=== PATIENT | male | born 1950 | race Caucasian/White ===

== ENCOUNTER → 2023-02-15 07:31 | Outpatient (CLI) | payer MEDICARE, OTHER, SELFPAY ==
--- NOTE | ~2023-02-15 | US_ITS ---
EXAMINATION: US aorta [facility] DATE: 02/15/2023 08:31 CDT INDICATION: History of smoking. Diabetes. Obesity. High cholesterol. TECHNIQUE: Grayscale, color Doppler, and pulsed Doppler images of the aorta and common iliac arteries were obtained. COMPARISON: None. FINDINGS: The proximal aorta measures 2.5 cm greatest sagittal dimension. The mid aorta measures 1.9 cm greates t sagittal dimension. The distal aorta measures 1.7 cm greatest sagittal dimension. The right common internal iliac artery measures 1 cm. The left common iliac artery measures 1 cm. IMPRESSION: 1. Normal caliber aorta without aneurysm. Reviewed, dictated and finalized at location L.
== END ==
PROVIDERS: PCP Emergency Medicine; Visit Provider Emergency Medicine
DX: Z13.6 Encounter for screening for cardiovascular disorders (principal); Z87.891 Personal history of nicotine dependence
CPT/HCPCS: 76706

== ENCOUNTER 2023-03-15 01:15 | Day surgery (SDC) | payer MEDICARE, OTHER, SELFPAY ==
[2023-03-10 10:09] VITALS: BMI 32.9
--- NOTE | 2023-03-15 08:33 | P.PNAN_ITS ---
Anes - Initial Pre Proc Eval Procedure: Operation Date: 03/15/23 11:30 Proposed Procedures p Esophagogastroduodenoscopy & Colonoscopy - Jah Carrillo MD Date/Time: 03/15/23 08:33 Surgeon: Jah Carrillo MD Pre Op Diagnosis: BEATRICE Patient Data Age: 72 Gender: M Height: 1.68 m Weight: 92.5 kg Allergies Allergy/AdvReac Type Severity Reaction Status Date / Time No Known Allergies Allergy Verified 03/15/23 10:08 Home Medications Medication Instructions Recorded Confirmed Type ferrous sulfate 325 mg (65 mg 325 mg PO DAILY 02/15/23 03/15/23 History iron) tablet metformin 500 mg tablet 500 mg PO BID 02/15/23 03/15/23 History simvastatin 20 mg tablet 20 mg PO DAILY 02/15/23 03/15/23 History Patient hx anesthesia problems: none Family hx anesthesia problems: none Results Review: All pre-operative results and documents have been reviewed as part of the pre- operative evaluation. PMF Past Medical History Medical History (Updated 03/15/23 @ 08:34 by Candido Paul MD) Anemia Anxiety Diabetes Hyperlipidemia Iron (Fe) deficiency anemia Obesity Surgical History Surgical History (Updated 02/15/23 @ 08:50 by Regina Calderon CMA) History of tonsillectomy Social History Social History (Updated 02/15/23 @ 10:16 by Regina Calderon CMA) Smoking packs per day: 1 Smoking cigarettes per day: 20.0 Years smoked: 10 Smoking pack-years: 10.00 Smoking status: Former smoker Alcohol intake: never Substance use: never Living arrangements: with family Spiritual care concerns: No Anes - Eval Final PreProcedure Day of Procedure 03/15/23 08:33 Patient weight: obese Heart: regular rate and rhythm Lungs: clear to auscultation and normal air movement Airway: Mallampati scale class II Neurological: alert and oriented Last oral intake: >/= 8 hours ASA classification: III Emergent: no Anesthetic plan: proceed Anesthesia type and monitoring: general GIVS Results Review: All pre-operative results and documents have been reviewed as part of the pre- operative evaluation. Informed Consent: The patient's anesthetic plan and its attendant risks and benefits were discussed with the patient/family/POA. Questions were solicited and answers provided to the satisfaction of the patient/family/POA.
[2023-03-15 10:15] VITALS: BP 132/83; PULSE 87; RESP 18; TEMP 36.6; O2SAT 100; BMI 32.3
[2023-03-15] MEDS: LACTATED RINGERS 1,000 ML 150 ML IV CONT (10:28)
[2023-03-15 10:29] LABS: Glucose Point of Care 144 mg/dl (65-105)
--- NOTE | 2023-03-15 10:41 | WPDHPUPDATE1 ---
History and Physical Update Update Date/Time: 03/15/23 10:41 History and Physical has been reviewed, including an updated exam of the patient. There are NO changes in the patient's condition. Risks, benefits, and alternatives have been discussed and questions answered. Patient agrees to proceed with procedure.
--- NOTE | 2023-03-15 11:15 | SUR.OPER ---
EGD: [id number] COLON: [id number]
[2023-03-15 11:36] VITALS: BP 139/83; PULSE 73; RESP 24; O2SAT 98
[2023-03-15 11:46] VITALS: BP 127/81; PULSE 71; RESP 20; O2SAT 99
[2023-03-15 11:56] VITALS: BP 119/71; PULSE 66; RESP 17; O2SAT 98
== END 2023-03-15 12:08 | disposition home or self-care (01) ==
PROVIDERS: PCP Emergency Medicine; Visit Provider Internal Medicine Gastroenterology
PROC: 0DJ08ZZ Inspection of Upper Intestinal Tract, Via Natural or Artificial Opening Endoscopic (ICD-10-PCS; CPT 43235; principal; 2023-03-15 11:30)
DX: D50.9 Iron deficiency anemia, unspecified (principal); D12.5 Benign neoplasm of sigmoid colon; K64.8 Other hemorrhoids; K64.4 Residual hemorrhoidal skin tags; E11.9 Type 2 diabetes mellitus without complications; E78.5 Hyperlipidemia, unspecified; Z87.891 Personal history of nicotine dependence; E66.9 Obesity, unspecified; Z68.32 Body mass index [BMI] 32.0-32.9, adult
CPT/HCPCS: 45385; 43239; 82948; 87081; 88305; J2704; J7120

== ENCOUNTER 2023-03-25 09:54 | Outpatient (CLI) | payer MEDICARE, OTHER, SELFPAY ==
[2023-03-25 10:11] LABS: Basophils Absolute Auto 0.1 K/mm3 (0.0-0.1); Basophils Percent Auto 0.8 % (0.2-1.2); Eosinophils Absolute Auto 0.3 K/mm3 (0-0.3); Eosinophils Percent Auto 3.4 % (0-4.4); Hematocrit 37.8 % (42.0-52.0); Hemoglobin 11.7 g/dL (14.0-18.0); Immature Granulocyte Absolute 0.06 K/mm3 (0.00-0.031); Immature Granulocyte Percent A 0.7 % (0-0.5); Lymphocytes Percent Auto 17.1 % (18.3-44.2); Mean Corpuscular Hemoglobin 26.4 pg (26-34); Mean Corpuscular Volume 85.3 fl (80-100); Monocytes Absolute Auto 0.8 K/mm3 (0.1-0.6); Monocytes Percent Auto 8.9 % (2.6-8.5); Neutrophils Percent Auto 69.1 % (45.5-73.1); Platelet Count Result 421 k/mm3 (150-375); Red Blood Count 4.43 M/mm3 (4.6-6.20); Red Cell Distribution Width 17.2 % (11.5-14.5); White Blood Count 8.8 K/mm3 (4.5-10.0)
[2023-03-25 12:19] LABS: Alanine Aminotransferase 22 U/L (6-50); Albumin Level 4.6 g/dL (3.5-5.1); Alkaline Phosphatase 89 U/L (38-126); Anion Gap 8 mmol/L (8-16); Aspartate Amino Transferase 28 U/L (17-59); Bilirubin,Total 0.5 mg/dL (0.2-1.3); Blood Urea Nitrogen 16 mg/dL (9-20); Calcium 8.9 mg/dL (8.4-10.2); Carbon Dioxide 25 mmol/L (22-30); Chloride 104 mmol/L (98-107); Estimated Glomerular Filt Rate > 60; Glucose 135 mg/dL (65-110); Iron 181 ug/dL (49-181); Potassium 4.4 mmol/L (3.4-5.0); Sodium 137 mmol/L (137-145)
[2023-03-25 12:30] LABS: Percent Iron Saturation 40 % (20-50)
[2023-03-25 13:28] LABS: Folic Acid > 20.0 ng/mL (2.76->20)
[2023-03-30 08:49] LABS: Methylmalonic Acid 121 nmol/L (87-318)
== END 2023-03-25 09:55 | disposition home or self-care (01) ==
LOC: ANHLAB 09:58
PROVIDERS: PCP Emergency Medicine; Visit Provider Internal Medicine Hematology & Oncology
DX: D64.9 Anemia, unspecified (principal)
CPT/HCPCS: 36415; 80053; 82607; 82728; 82746; 83540; 83550; 83921; 85025

== ENCOUNTER 2023-04-26 09:52 | Outpatient (CLI) | payer MEDICARE, OTHER, SELFPAY ==
--- NOTE | 2023-04-26 10:03 | ECG_ITS ---
Measurements Intervals [place] Rate: 71 P: 64 GA: 156 QRS: -27 QRSD: 93 T: -4 QT: 368 QTc: 402 Interpretive Statements SINUS RHYTHM POOR R WAVE PROGRESSION, ANTERIOR LEADS BORDERLINE T WAVE ABNORMALITY- INFERIOR LEADS BORDERLINE ECG NO PREVIOUS ECG AVAILABLE FOR COMPARISON Electronically Signed On 04-26-2023 10:29:14 CDT by Francisco J Grace D.O.
== END 2023-04-26 09:53 | disposition home or self-care (01) ==
PROVIDERS: PCP Emergency Medicine; Visit Provider Surgery
DX: E78.5 Hyperlipidemia, unspecified (principal)
CPT/HCPCS: 93005

== ENCOUNTER 2023-04-29 00:26 | Day surgery (SDC) | payer MEDICARE, OTHER, SELFPAY ==
[2023-04-25 15:19] VITALS: BMI 31.1
--- NOTE | 2023-04-25 15:24 | PC.NURSE ---
Report to the Outpatient Waiting Room, entrance under the green pavilion located off [facility], at time on date . Planned Procedure Time: . Time changes happen often and if your time is changed the preop area will call you the afternoon before. - You and your visitor will be asked to self-screen and do not enter if you have any COVID symptoms. - A mask is optional within the hospital at this time. Patients may have clear liquids (water, carbonated beverages, clear teas, apple juice) until 3 hours prior to surgery with a maximum of 20 ounces. - No food from midnight until time of surgery - Infants may have breast milk until 4 hours before surgery, infant formula 6 hours prior to surgery. - Children will be allowed to drink immediately following surgery. If applicable, please bring a bottle or sippy cup to assist with drinking. Juice, water, soda, and popsicles are readily available. For infants on formula, please bring formula the day of surgery. Pacifiers are allowed. Take the following medications with a SIP of water the morning of surgery: DO NOT STOP ANY OF YOUR OTHER PRESCRIPTION MEDICATIONS PRIOR TO SURGERY ?EXCEPT THE FOLLOWING Medications to discontinue per physician Date to take last dose Please no make-up, nail icelandic, hairspray, perfume, deodorant, or body powder the day of surgery. No jewelry (including any body piercings) or valuables the day of surgery, leave them at home. Please take a shower or bath the night before, or the morning of, surgery with an antibacterial soap. Wear comfortable, loose fitting clothing. Children are encouraged to wear pajamas. - Jewelry must be removed prior to entering the operating room. Rings and piercings that are not removed may be cut off. - The hospital will not accept responsibility for valuables. - Please leave all valuables, including medications, at home the day of surgery. If you are going home after surgery, a licensed industrial truck driver must drive you home. - NO public transportation without another adult if you receive anesthesia. - We recommend that an adult stay with you for 24 hours following discharge. - We also recommend that you do not drive, make important decision, drink alcoholic beverages, or take any drugs that were not prescribed by your health care provider for at least 24 hours after your discharge time. For Pediatric surgeries, we recommend two adults accompany the child home. Follow any additional instructions given to you from your surgeon. If you or anyone in your household have experienced Covid symptoms in the past week, please notify your surgeon or the nurse liaison at the phone number below for possible testing. Telephone instructions given to and asked if any additional questions and then verbalized understanding. Patient advised to call surgeon office or pre surgery nurse liaison [phone] if any additional questions.
--- NOTE | 2023-04-25 15:25 | PC.NURSE ---
Report to the Outpatient Waiting Room, entrance under the green pavilion located off [facility], at time 0700_ on date _04/29/23_. Planned Procedure Time: _0900__. Time changes happen often and if your time is changed the preop area will call you the afternoon before. - You and your visitor will be asked to self-screen and do not enter if you have any COVID symptoms. - A mask is optional within the hospital at this time. Patients may have clear liquids (water, carbonated beverages, clear teas, apple juice) until 3 hours prior to surgery with a maximum of 20 ounces. - No food from midnight until time of surgery - Infants may have breast milk until 4 hours before surgery, infant formula 6 hours prior to surgery. - Children will be allowed to drink immediately following surgery. If applicable, please bring a bottle or sippy cup to assist with drinking. Juice, water, soda, and popsicles are readily available. For infants on formula, please bring formula the day of surgery. Pacifiers are allowed. Take the following medications with a SIP of water the morning of surgery: NONE DO NOT STOP ANY OF YOUR OTHER PRESCRIPTION MEDICATIONS PRIOR TO SURGERY ?EXCEPT THE FOLLOWING Medications to discontinue per physician SUPPLIMENT Date to take last dose 04/26/23 Please no make-up, nail irish, hairspray, perfume, deodorant, or body powder the day of surgery. No jewelry (including any body piercings) or valuables the day of surgery, leave them at home. Please take a shower or bath the night before, or the morning of, surgery with HIBICLENS antibacterial soap. Wear comfortable, loose fitting clothing. Children are encouraged to wear pajamas. - Jewelry must be removed prior to entering the operating room. Rings and piercings that are not removed may be cut off. - The hospital will not accept responsibility for valuables. - Please leave all valuables, including medications, at home the day of surgery. If you are going home after surgery, a licensed bulk tank driver must drive you home. - NO public transportation without another adult if you receive anesthesia. - We recommend that an adult stay with you for 24 hours following discharge. - We also recommend that you do not drive, make important decision, drink alcoholic beverages, or take any drugs that were not prescribed by your health care provider for at least 24 hours after your discharge time. For Pediatric surgeries, we recommend two adults accompany the child home. Follow any additional instructions given to you from your surgeon. If you or anyone in your household have experienced Covid symptoms in the past week, please notify your surgeon or the nurse liaison at the phone number below for possible testing. Telephone instructions given to PATIENT__and asked if any additional questions and then verbalized understanding. Patient advised to call surgeon office or pre surgery nurse liaison [phone] if any additional questions.
[2023-04-29] VITALS (10 sets, daily range): BP systolic 106–153; BP diastolic 57–82; PULSE 58–64; RESP 13–14; TEMP 36.3–36.4; O2SAT 96–100
[2023-04-29 06:54] LABS: Glucose Point of Care 126 mg/dl (65-105)
--- NOTE | 2023-04-29 07:19 | WPDHPUPDATE1 ---
History and Physical Update Update Date/Time: 04/29/23 07:19 History and Physical has been reviewed, including an updated exam of the patient. There are NO changes in the patient's condition. Risks, benefits, and alternatives have been discussed and questions answered. Patient agrees to proceed with procedure.
--- NOTE | 2023-04-29 07:20 | WPDANESEPPF ---
Anes - Initial Pre Proc Eval Procedure: Operation Date: 04/29/23 07:30 Proposed Procedures p Excisional Hemorrhoidectomy - Huseyin Hough MD Date/Time: 04/29/23 07:20 Surgeon: Huseyin Hough MD Pre Op Diagnosis: internal and external bleeding hemorrhoids Patient Data Age: 73 Gender: M Height: 1.7 m Weight: 88.2 kg Last Vital Signs Temp 97.6 F 04/29/23 06:58 Pulse 64 04/29/23 06:58 Resp 14 04/29/23 06:58 BP 153/74 H 04/29/23 06:58 Pulse Ox 99 04/29/23 06:58 O2 Del Method Room Air 04/29/23 06:58 Allergies Allergy/AdvReac Type Severity Reaction Status Date / Time No Known Allergies Allergy Verified 04/29/23 07:01 Home Medications Medication Instructions Recorded Confirmed Type ferrous sulfate 325 mg (65 mg 325 mg PO DAILY 02/15/23 04/25/23 History iron) tablet metformin 500 mg tablet 500 mg PO BID 02/15/23 04/25/23 History simvastatin 20 mg tablet 20 mg PO DAILY 02/15/23 04/25/23 History Laboratory Tests 04/29/23 06:51 POC Capillary Glucose 126 H mg/dl (65-105) Patient hx anesthesia problems: none Family hx anesthesia problems: none Results Review: All pre-operative results and documents have been reviewed as part of the pre-operative evaluation. [facility] Past Medical History Medical History Anemia Anxiety Diabetes Hyperlipidemia Iron (Fe) deficiency anemia Obesity Surgical History Surgical History History of tonsillectomy Family History Family History Father History of heart bypass surgery Other Diabetes mellitus Social History Social History Smoking packs per day: 1 Smoking cigarettes per day: 20.0 Years smoked: 6 Smoking pack-years: 6.00 Smoking status: Former smoker Tobacco type: cigarettes Alcohol intake: never Substance use: never Living arrangements: with family Spiritual care concerns: No Anes - Eval Final PreProcedure Day of Procedure 04/29/23 07:20 Patient weight: obese Heart: regular rate and rhythm Lungs: clear to auscultation Airway: Mallampati scale class II Neurological: alert and oriented Last oral intake: >/= 8 hours ASA classification: III Emergent: no Anesthetic plan: proceed Anesthesia type and monitoring: general LMA and standard monitoring Results Review: All pre-operative results and documents have been reviewed as part of the pre-operative evaluation. Informed Consent: The patient's anesthetic plan and its attendant risks and benefits were discussed with the patient/family/POA. Questions were solicited and answers provided to the satisfaction of the patient/family/POA.
[2023-04-29] MEDS: KETOROLAC 15 MG/ML VIAL (*BKC) IV PUSH (07:30)
[2023-04-29] MEDS: ACETAMINOPHEN 500 MG TABLET 1000 MG PO (07:30)
[2023-04-29] MEDS: ceFAZolin 2 GM/D5W 50 ML 2 GM/50 ML BAG IVPB (07:38)
[2023-04-29] MEDS: LACTATED RINGERS 1,000 ML 30 ML IV CONT ×2 (07:51→10:00)
[2023-04-29] MEDS: BUPivacaine HCL 0.5% 10 ML AMP 20 ML INFILTRATE (08:22)
[2023-04-29 10:16] LABS: Glucose Point of Care 166 mg/dl (65-105)
--- NOTE | 2023-04-29 10:58 | SUR.PHASEII ---
Patient and spouse are apprehensive about going home. RN called back to the OR and spoke w/ Angie and asked her to let Dr. Hough know to come speak to them in outpatient when he's finished with his next case.
[2023-04-29] MEDS: oxyCODONE HCL (*CRX) 5 MG TAB IR PO (11:03)
--- NOTE | 2023-04-29 15:04 | W.PM.PROC2 ---
Procedure Note - Detailed Date of Procedure 04/29/23 Pre-op Diagnosis internal and external bleeding hemorrhoids Post-op Diagnosis Other (Combined internal-external hemorrhoids x2, distal rectal polyp) Procedure Performed Anal rectal evaluation under anesthesia, excisional hemorrhoidectomy x2, and excision of distal rectal polyp x1. Surgeon Huseyin Hough MD Anesthesia General Indications Patient is a 72-year-old male who is on iron supplementation secondary to anemia. Sources of blood loss include bleeding hemorrhoids which were seen on colonoscopy. He presents now for excisional hemorrhoidectomy. Findings Patient combined internal-external hemorrhoids at the 1:00 a.m. and 6:00 a.m. positions with the patient in the prone kody-knife position. He also had a 1.5cm distal rectal polyp at the 12 o'clock position posteriorly. Description of Procedure After informed consent was obtained the patient was taken to the operating room was placed under general endotracheal anesthesia on the gurney and then turned into the prone kody-knife position on the operating table. Care was taken to make sure that all the pressure points were well padded. The perianal region was then exposed by taping the buttocks apart and then the area was prepped and draped in usual sterile fashion. A time-out was then performed correctly identifying the patient as well as procedure to be performed. He was given perioperative IV antibiotics. I 1st started trying to perform dilation of the anal sphincters. 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 I could only admit 2 fingers into the anal canal 1 normally I could usually get 3 finger breaths into the anal canal. Upon placed an anal speculum into the anal canal could tell there were 2 combined internal-external hemorrhoids at the 1:00 a.m. and 6:00 a.m. positions. I started with the hemorrhoid at the 6 o'clock position. With the Castro anal retractor in place I placed a 2-0 chromic suture at the apex of the hemorrhoid and then incised the tissue on either side of the hemorrhoid out onto the perianal skin to include the external component the redundant skin and external hemorrhoid tissue. Dissection was then carried out with electrocautery superficial to the internal sphincter muscle fibers. Once I had tissue completely excised out it was sent to pathology labeled as hemorrhoid at 6:00 a.m.. The incision was then closed by running the 2-0 chromic suture in a locking fashion out to the anal verge. I then transition to using a 3-0 Vicryl suture to close the perianal skin and portion of the incision. Next I excised out the combined internal-external hemorrhoid at the 1 o'clock position a similar fashion. Again a 2 0 chromic sutures placed at the apex of the hemorrhoid and then a scalp was used to incise the tissue on either side of the hemorrhoid to include the large external component redundant skin. Electrocautery was used to dissect this tissue off of the internal sphincter muscle fibers. This tissue was sent to pathology for examination labeled as hemorrhoid 1 o'clock position. With this incision I tried to close as much as I could inside the anal opening with a running 2 0 chromic suture. Once I reached the anal verge I felt that approximated the skin edges in this area would stricture of the anal opening too much at the skin level and so this was left open. I fulgurated the tissue well to make sure it was hemostatic. I then palpated the anal canal and I could feel a polypoid mass in the distal rectum. I placed the Castro retractor back into the anal canal into the 12 o'clock position there seemed to be a pedunculated mass about 1.5cm in diameter. I held it with a Allis clamp and then placed a 3-0 Vicryl suture at the base of the stalk in a [id number] fashion. The distal portion of the tissue was excised off utilized electrocautery. The polyp was sent to pathology labeled as distal rectal po
== END 2023-04-29 12:22 | disposition home or self-care (01) ==
PROVIDERS: PCP Emergency Medicine; Visit Provider Surgery
PROC: (CPT 46260; principal; 2023-04-29 07:30)
DX: K64.8 Other hemorrhoids (principal); K64.4 Residual hemorrhoidal skin tags; K62.1 Rectal polyp; E11.9 Type 2 diabetes mellitus without complications; E78.5 Hyperlipidemia, unspecified; D50.9 Iron deficiency anemia, unspecified; Z79.84 Long term (current) use of oral hypoglycemic drugs; E66.9 Obesity, unspecified; Z68.30 Body mass index [BMI] 30.0-30.9, adult; Z87.891 Personal history of nicotine dependence
CPT/HCPCS: 46260; 45171; 82948; 88304; 88305; A9270; C9290; J0690; J1100; J1885; J2250; J2405; J2704; J3010; J7120

== ENCOUNTER 2023-07-05 09:24 | Outpatient (CLI) | payer MEDICARE, OTHER, SELFPAY ==
[2023-07-05 09:40] LABS: Basophils Absolute Auto 0.1 K/mm3 (0.0-0.1); Basophils Percent Auto 0.9 % (0.2-1.2); Eosinophils Absolute Auto 0.3 K/mm3 (0-0.3); Eosinophils Percent Auto 3.9 % (0-4.4); Hematocrit 41.9 % (42.0-52.0); Hemoglobin 13.4 g/dL (14.0-18.0); Immature Granulocyte Absolute 0.03 K/mm3 (0.00-0.031); Immature Granulocyte Percent A 0.4 % (0-0.5); Lymphocytes Absolute Auto 1.72 K/mm3 (0.9-3.2); Lymphocytes Percent Auto 22.4 % (18.3-44.2); Mean Corpuscular Hemoglobin 29.3 pg (26-34); Mean Corpuscular Volume 91.5 fl (80-100); Mean Platelet Volume 9.9 fl (7.4-10.4); Monocytes Absolute Auto 0.7 K/mm3 (0.1-0.6); Monocytes Percent Auto 8.5 % (2.6-8.5); Neutrophils Absolute Auto 4.9 K/mm3 (1.3-6.7); Neutrophils Percent Auto 63.9 % (45.5-73.1); Platelet Count Result 332 k/mm3 (150-375); Red Blood Count 4.58 M/mm3 (4.6-6.20); Red Cell Distribution Width 14.3 % (11.5-14.5); White Blood Count 7.7 K/mm3 (4.5-10.0)
[2023-07-05 10:48] LABS: Iron 113 ug/dL (49-181)
[2023-07-05 10:57] LABS: Percent Iron Saturation 28 % (20-50)
== END 2023-07-05 09:25 | disposition home or self-care (01) ==
LOC: ANHLAB 09:27
PROVIDERS: PCP Emergency Medicine; Visit Provider Internal Medicine Hematology & Oncology
DX: D64.9 Anemia, unspecified (principal)
CPT/HCPCS: 36415; 82728; 83540; 83550; 85025

== ENCOUNTER 2023-08-25 14:45 | Outpatient (RCR) | payer MEDICARE, OTHER, SELFPAY | END 2023-10-17 12:34 | disposition home or self-care (01) | LOC: ANHDMC 14:45 | PROVIDERS: PCP Emergency Medicine; Visit Provider Internal Medicine Endocrinology, Diabetes & Metabolism | DX: E11.9 Type 2 diabetes mellitus without complications (principal); Z71.89 Other specified counseling | CPT/HCPCS: G0108 ==

== ENCOUNTER 2023-10-21 12:25 | Outpatient (CLI) | payer MEDICARE, OTHER, SELFPAY ==
--- NOTE | ~2023-10-21 | US_ITS ---
EXAMINATION: US art doppler w press LE BI DATE: 10/21/2023 13:07 INDICATION: Diabetic with weak pulses in the bilateral lower limbs. TECHNIQUE: Segmental pressures and plethysmographic and Doppler waveforms of the brachial and lower e xtremity arteries were obtained. COMPARISON: None. FINDINGS: Right and left brachial artery pressures of 138 mm Hg and 130 mm Hg, respectively, are concordant (no rmal difference <= 30 mmHg). The right ankle-brachial index (BEBE) is 1.32 (normal >= 0.9-1). The right great toe-brachial index (T BI) is 0.91 (normal >= 0.6-0.8). Arterial waveforms are triphasic with brisk systolic upstrokes in th e right common femoral, popliteal and posterior tibial arteries and biphasic with brisk systolic upst rokes in the right dorsalis pedis artery. The left BEBE is 1.20. The left TBI is 0.91. Arterial waveforms are triphasic with brisk systolic upst rokes in the left common femoral, popliteal posterior tibial and dorsalis pedis arteries. IMPRESSION: 1. Normal BEBE's and TBI's bilaterally. No significant occlusive disease. Reviewed, dictated and finalized at location A. [employer]TER HEL[employer] DESK SPECIALIST
== END 2023-10-21 12:26 | disposition home or self-care (01) ==
LOC: CHSIMG 12:26
PROVIDERS: PCP Emergency Medicine; Visit Provider Emergency Medicine
DX: E11.9 Type 2 diabetes mellitus without complications (principal); R09.89 Other specified symptoms and signs involving the circulatory and respiratory systems
CPT/HCPCS: 93923

== ENCOUNTER 2023-11-04 13:58 | Outpatient (CLI) | payer MEDICARE, OTHER, SELFPAY ==
[2023-11-04 14:18] LABS: Basophils Absolute Auto 0.1 K/mm3 (0.0-0.1); Basophils Percent Auto 0.7 % (0.2-1.2); Eosinophils Absolute Auto 0.2 K/mm3 (0-0.3); Eosinophils Percent Auto 2.5 % (0-4.4); Hematocrit 42.4 % (42.0-52.0); Immature Granulocyte Absolute 0.02 K/mm3 (0.00-0.031); Immature Granulocyte Percent A 0.2 % (0-0.5); Lymphocytes Absolute Auto 1.38 K/mm3 (0.9-3.2); Lymphocytes Percent Auto 15.9 % (18.3-44.2); Mean Corpuscular Hemoglobin 30.2 pg (26-34); Mean Corpuscular Volume 91.6 fl (80-100); Mean Platelet Volume 9.8 fl (7.4-10.4); Monocytes Absolute Auto 0.7 K/mm3 (0.1-0.6); Monocytes Percent Auto 8.2 % (2.6-8.5); Neutrophils Absolute Auto 6.3 K/mm3 (1.3-6.7); Neutrophils Percent Auto 72.5 % (45.5-73.1); Platelet Count Result 306 k/mm3 (150-375); Red Blood Count 4.63 M/mm3 (4.6-6.20); Red Cell Distribution Width 12.7 % (11.5-14.5); White Blood Count 8.7 K/mm3 (4.5-10.0)
[2023-11-04 16:29] LABS: Iron 92 ug/dL (49-181)
[2023-11-04 16:39] LABS: Percent Iron Saturation 26 % (20-50)
== END 2023-11-04 13:59 | disposition home or self-care (01) ==
LOC: ANHLAB 14:01
PROVIDERS: PCP Emergency Medicine; Visit Provider Internal Medicine Hematology & Oncology
DX: D64.9 Anemia, unspecified (principal)
CPT/HCPCS: 36415; 82728; 83540; 83550; 85025

== ENCOUNTER 2024-05-09 11:04 | Outpatient (CLI) | payer MEDICARE, OTHER, SELFPAY ==
[2024-05-09 11:14] LABS: Basophils Absolute Auto 0.1 K/mm3 (0.0-0.1); Eosinophils Absolute Auto 0.2 K/mm3 (0-0.3); Eosinophils Percent Auto 3.1 % (0-4.4); Hematocrit 40.8 % (42.0-52.0); Hemoglobin 13.2 g/dL (14.0-18.0); Immature Granulocyte Absolute 0.01 K/mm3 (0.00-0.031); Immature Granulocyte Percent A 0.2 % (0-0.5); Lymphocytes Absolute Auto 1.66 K/mm3 (0.9-3.2); Lymphocytes Percent Auto 27.3 % (18.3-44.2); Mean Corpuscular HGB Conc 32.4 g/dl (32-36); Mean Corpuscular Hemoglobin 29.8 pg (26-34); Mean Corpuscular Volume 92.1 fl (80-100); Mean Platelet Volume 9.2 fl (7.4-10.4); Monocytes Absolute Auto 0.5 K/mm3 (0.1-0.6); Monocytes Percent Auto 8.7 % (2.6-8.5); Neutrophils Absolute Auto 3.6 K/mm3 (1.3-6.7); Neutrophils Percent Auto 59.7 % (45.5-73.1); Platelet Count Result 359 k/mm3 (150-375); Red Blood Count 4.43 M/mm3 (4.6-6.20); White Blood Count 6.1 K/mm3 (4.5-10.0)
[2024-05-09 11:44] LABS: Iron 80 ug/dL (49-181)
[2024-05-09 11:56] LABS: Percent Iron Saturation 23 % (20-50)
== END 2024-05-09 11:05 | disposition home or self-care (01) ==
LOC: ANHLAB 11:06
PROVIDERS: PCP Emergency Medicine; Visit Provider Internal Medicine Hematology & Oncology
DX: D64.9 Anemia, unspecified (principal)
CPT/HCPCS: 36415; 82728; 83540; 83550; 85025

== ENCOUNTER 2024-11-13 14:46 | Outpatient (CLI) | payer MEDICARE, OTHER, SELFPAY ==
--- OUTSIDE RECORDS SUMMARY | 2024-11-13 14:50 | XMS_ITS | Clinical Summary ---
Author Organization [facility] Address [address] [place] [address] Care Team Providers Care Bee Robber Name Role Phone Jeff Sawant MD Primary Care Provider [phone] Source Comments [facility],non-owned Affiliates and Associated Physician Practices is amultiple site organization consisting of ambulatory clinics and hospital sitesin [place], [place], [place] and [place]. This disclosure is being madepursuant to the Care Everywhere program and may not contain all information available regarding this patient. Last updated 18.[facility] Allergies No known active allergies Medications Be aware that medications may not be up to date on this document. Always verify current medications with the patient. No known medications Social History Tobacco Use Types Packs/Day Years Used Date Smoking Tobacco: Never Assessed Sex and Gender Information Value Date Recorded Sex Assigned at Not on file Gender Identity Not on file Sexual Orientation Not on file Last Filed Vital Signs Vital Sign Reading Time Taken Comments Blood Pressure 142/80 04/29/2021 2:33 PM CDT Pulse 80 04/29/2021 2:16 PM CDT Temperature 36.6 ??C (97.8 ??F) 04/29/2021 2:16 PM CD T Respiratory Rate 20 04/29/2021 2:16 PM CDT Oxygen Saturation 97% 04/29/2021 2:16 PM CDT Inhaled Oxygen Concentration - - Weight 93 kg (205 lb) 04/29/2021 2:16 PM CDT Height 170.2 cm (5' 7 ) 04/29/2021 2:16 PM CDT Body Mass Index 32.11 04/29/2021 2:16 PM CDT Plan of Treatment Health Maintenance Due Date Last Done Comments JAYY (AGES 45-75) - COL ON CA SCREENING 1950 COLON MONITORING 1950 COLONOSCOPY - COLON CA SCREENING 1951 CT COLONOGRAPHY - COLON CA SCREENING 1950 Colorectal Cancer Screening 1950 FIT - COLON CA SCREENING 1950 FLEX SIG - COLON CA SCREENING 1950 LIPID TESTING 1950 MEDICARE AWV ? 12 MONTHS 1950 HEPATITIS C SCREENING 04/15/1969 DTAP/TDAP/TD VACCINES (1 - Tdap) 1970 PNEUMOCOCCAL VACCINE 50+ (1 of 1 - PCV) 2001 ZOSTER VACCINE (1 of 2) 2001 SCREENING FOR DIABETES 04/29/2021 COVID-19 VACCINE (3 - 2023-2 5 season) 2024 12/18/2020, 11/20/2020 INFLUENZA VACCINE (#1) 2024 DEPRESSION SCREENING 10/10/2024 Respiratory Syncytial Virus (RSV) Vaccine Pt: or over 60 yrs (1 - 1-dose 75+ series) 2026 HEPATITIS B VACCINE Aged Out No longe r eligible based on patient's age to complete this topic HIB VACCINE Aged Out No longer eligi ble based on patient's age to complete this topic HPV VACCINE Aged Out No longer eligi ble based on patient's age to complete this topic MENINGOCOCCAL (Group B) VACCINE Aged Out No longer eligible b ased on patient's age to complete this topic MENINGOCOCCAL VACCINE Aged Out No christina issa eligible based on patient's age to complete this topic Care Teams Bee Robber Relationship Specialty Start Date End Date Jeff Sawant MD [address] [address] PCP - General Family Medicine 03/09/23
--- OUTSIDE RECORDS SUMMARY | 2024-11-13 14:50 | XMS_ITS | Referral Summary ---
Author Organization [facility] Address [address] [place] [address] Care Team Providers Care Military Science Instructor Name Role Phone Jeff Sawant MD Primary Care Provider [phone] Source Comments [facility],non-owned Affiliates and Associated Physician Practices is amultiple site organization consisting of ambulatory clinics and hospital sitesin [place], [place], [place] and [place]. This disclosure is being madepursuant to the Care Everywhere program and may not contain all information available regarding this patient. Last updated 18.[employer] Allergies No known active allergies Medications Be [...] 04/29/2021 2:16 PM CDT Plan of Treatment Not on file Care Teams Military Science Instructor Relationship Specialty Start Date End Date Jeff Sawant MD [address] [place] [address] PCP - General Family Medicine 03/09/23
--- OUTSIDE RECORDS SUMMARY | 2024-11-13 14:50 | XMS_ITS | Clinical Summary ---
Author Organization [facility] Lang Maldonadomariana Address [address] [place] [place] [address] Care Team Providers Care Fireproof Door Assembler Name Role Phone Jeff Sawant MD Primary Care Provider [phone] Allergies No known active allergies Medications ferrous sulfate 325 mg (65 mg iron) tablet Take 325 mg by mouth daily. 03/11/2023 Active metFORMIN (GLUCOPHAGE) 500 mg tablet Take 500 mg by mouth 2 times daily with meals. 03/11/2023 Active simvastatin (ZOCOR) 20 mg tablet 20 mg. 03/11/2023 Active tamsulosin (FLOMAX) 0.4 mg capsule take 1 capsule by mouth everyday at bedtime 02/24/2024 Active losartan (COZAAR) 25 mg tablet Take 1 Tablet by mouth daily. 04/23/2024 Active Active Problems No known active problems Encounters Date Type Department Care Team Description 11/06/2024 External Device Data STL ABSTRACTION Provider, Abstract from Last 3 Months Family History Relation Name Status Comments Brother Alive Father Mother Sister Alive Son 1 Alive Son 2 Alive Social History Tobacco Use Types Packs/Day Years Used Date Smoking Tobacco: Never Smokeless Tobacco: Never Tobacco Cessation:Counseling Given: Not Answered Alcohol Use Standard Drinks/Week Comments Never 0 (1 standard drink = 0.6 oz pur e alcohol) Sex and Gender Information Value Date Recorded Sex Assigned at Not on file Legal Sex Male 11:08 AM CDT Gender Identity Not on file Sexual Orientation Not on file Last Filed Vital Signs Vital Sign Reading Time Taken Comments Blood Pressure 128/81 05/11/2024 9:01 AM CDT Pulse 74 05/11/2024 9:01 AM CDT Temperature 36.8 ??C (98.2 ??F) 05/11/2024 9:01 AM CD T Respiratory Rate 20 05/11/2024 9:01 AM CDT Oxygen Saturation 98% 05/11/2024 9:01 AM CDT Inhaled Oxygen Concentration - - Weight 88 kg (194 lb) 05/11/2024 9:01 AM CDT Height 167.6 cm (5' 6 ) 03/25/2023 8:57 AM CDT Body Mass Index 31.31 03/25/2023 8:57 AM CDT Plan of Treatment Upcoming Encounters Date Type Department Care Team (Late st Contact Info) Description 11/16/2024 11:00 AM LOG HANDLER Office Visit [facility] Oncology and Hematology - [place] [address] [facility] [address] [place] [address] Harvinder Lewis MD [address] [facility] [address] [place] [address] Health Maintenance Due Date Last Done Comments DTAP/TDAP/TD VACCINES (1 - Tdap) 1970 Traditional Medicare (ACO) Annual Wellness Visit 04/20 FIT-DNA Q 3 years 1996 FIT/FOBT Q 1 year 1996 Flex Sig/CT Colonography Q 5 years 1996 PNEUMOCOCCAL VACCINE 65+ YEARS (1 of 1 - PCV) 04/20/20 ZOSTER VACCINE (1 of 2) 2001 INFLUENZA VACCINE (#1) 2024 RSV VACCINE (60+ or ) (1 - 1-dose 75+ series) 2026 COLORECTAL SCREENING 03/15/2033 03/15/2023 Colorectal Cancer Screening 03/15/2033 Insurance MEDICARE PART A AND B [employer] Care Teams Fireproof Door Assembler Relationship Specialty Start Date End Date Jeff Sawant MD [address] [place] [phone] PCP - General Family Practice 11/11/23
--- OUTSIDE RECORDS SUMMARY | 2024-11-13 14:50 | XMS_ITS | Patient Health Summary ---
Author Organization [facility] [employer] Address [address] [place] [address] Care Team Providers Care Media Reconciliation Specialist Name Role Phone Jeff Sawant MD Primary Care Provider [phone] Note from [facility],non-owned Affiliates and Associated Physician Practices is amultiple site organization consisting of ambulatory clinics and hospital sitesin [place], [place], [place] and [place]. This disclosure is being madepursuant to the Care Everywhere program and may not contain all information available regarding this patient. Last updated 18.[facility] Allergies No known active allergies Medications Be [...] Mass Index 32.11 04/29/2021 2:16 PM CDT Care Teams Media Reconciliation Specialist Relationship Specialty Start Date End Date Jeff Sawant MD [address] [place] [phone] PCP - General Family Medicine 03/09/23
[2024-11-13 15:01] LABS: Hematocrit 38.4 % (42.0-52.0); Hemoglobin 12.5 g/dL (14.0-18.0); Mean Corpuscular HGB Conc 32.6 g/dl (32-36); Mean Corpuscular Hemoglobin 30.3 pg (26-34); Mean Platelet Volume 8.9 fl (7.4-10.4); Platelet Count Result 321 k/mm3 (150-375); Red Blood Count 4.13 M/mm3 (4.6-6.20); Red Cell Distribution Width 13.1 % (11.5-14.5); White Blood Count 9.1 K/mm3 (4.5-10.0)
[2024-11-13 16:50] LABS: Anion Gap 10 mmol/L (4-12); Blood Urea Nitrogen 13 mg/dL (9-20); Calcium 9.1 mg/dL (8.4-10.2); Carbon Dioxide 26 mmol/L (22-30); Chloride 102 mmol/L (98-107); Estimated Glomerular Filt Rate > 60; Glucose 73 mg/dL (65-110); Potassium 3.9 mmol/L (3.4-5.0); Sodium 138 mmol/L (137-145)
[2024-11-13 17:20] LABS: Iron 98 ug/dL (49-181)
[2024-11-13 17:34] LABS: Percent Iron Saturation 26 % (20-50)
[2024-11-13 17:55] LABS: Folic Acid 8.5 ng/mL (2.76->20)
== END 2024-11-13 14:47 | disposition home or self-care (01) ==
LOC: ANHLAB 14:47
PROVIDERS: PCP Emergency Medicine; Visit Provider Internal Medicine Hematology & Oncology
DX: D64.9 Anemia, unspecified (principal)
CPT/HCPCS: 36415; 80048; 82607; 82728; 82746; 83540; 83550; 85027

== ENCOUNTER 2025-04-17 10:34 | Outpatient (CLI) | payer MEDICARE, OTHER, SELFPAY ==
--- OUTSIDE RECORDS SUMMARY | 2025-04-17 10:40 | XMS_ITS | Patient Health Record ---
Author Organization [facility] Address [address] [place] [address] Care Team Providers Care Sheet Mill Supervisor Name Role Phone Marco Grimaldo Primary Care Provider [phone] Reason For Referral No Information Immunizations Vaccine Route Administration Date Status Comme nts COVID-19 Moderna 2nd IM Intramuscular 12/18/2020 Administered EUA given. Varsha ent tolerated well COVID-19 Moderna 1ST IM Intramuscular 11/20/2020 Administered EUA date 0. Screening reviewed and consent signed. Patient tolerated well. Plan Of Treatment No Information Insurance Providers Payer Name Payer Address Payer Phone Subscriber Number Group Number Insured Name Patient Relationship to Insured Coverage Start Date Coverage End Date [facility] [address] [place] [address] [id number] Jose Luis Peacock Self - patient is the insured 1
--- OUTSIDE RECORDS SUMMARY | 2025-04-17 10:40 | XMS_ITS | Clinical Summary ---
Author Organization [facility] Lang Maldonadomariana Address [address] [place] [address] Care Team Providers Care Matrix Inspector Name Role Phone Jeff Sawant MD Primary Care Provider [phone] Allergies No known active allergies Medications metFORMIN (GLUCOPHAGE) 500 mg tablet Take 500 mg by mouth 2 times daily with meals. 03/11/2023 Active simvastatin (ZOCOR) 20 mg tablet 20 mg. 03/11/2023 Active tamsulosin (FLOMAX) 0.4 mg capsule take 1 capsule by mouth everyday at bedtime 02/24/2024 Active losartan (COZAAR) 25 mg tablet Take 1 Tablet by mouth daily. 04/23/2024 Active ferrous sulfate 325 mg (65 mg iron) tablet Take 1 Tablet (325 mg) by mouth daily. 90 Tablet 2 11/16/2024 Active cyanocobalamin 1,000 mcg Tablet Take 1 Tablet (1,000 mcg) by mouth daily. 90 Tablet 3 11/16/2024 Active Active Problems No known active problems Encounters Date Type Department Care Team Description 03/26/2025 External Device Data STL ABSTRACTION Provider, Abstract 03/05/2025 External Device Data STL ABSTRACTION Provider, Abstract 02/28/2025 External Device Data STL ABSTRACTION Provider, Abstract 02/27/2025 External Device Data STL ABSTRACTION Provider, Abstract 02/26/2025 External Device Data STL ABSTRACTION Provider, Abstract 01/22/2025 External Device Data STL ABSTRACTION Provider, Abstract [...] Sign Reading Time Taken Comments Blood Pressure 152/85 11/16/2024 11:04 AM LIBRARY SERIALS ASSISTANT at home this morning patient states its 123/78 Pulse 97 11/16/2024 11:04 AM LIBRARY SERIALS ASSISTANT Temperature 36.6 C (97.9 F) 11/16/2024 11:04 AM LIBRARY SERIALS ASSISTANT Respiratory Rate 16 11/16/2024 11:0 4 AM LIBRARY SERIALS ASSISTANT Oxygen Saturation 98% 11/16/2024 11: 04 AM LIBRARY SERIALS ASSISTANT Inhaled Oxygen Concentration - - Weight 89.8 kg (198 lb) 11/16/2024 11:0 4 AM LIBRARY SERIALS ASSISTANT Height 167.6 cm (5' 6) 03/25/2023 8:57 AM CDT Body Mass Index 31.96 03/25/2023 8:57 AM CDT Plan of Treatment Upcoming Encounters Date Type Department Care Team (Late st Contact Info) Description 04/24/2025 3:45 PM CDT Office Visit [facility] Oncology and Hematology - [place] [address] [place] [address] [facility] [address] [place] [address] [place] [address] [place] [address] [address] [place] [address] Health Maintenance Due Date Last Done Comments DTAP/TDAP/TD VACCINES (1 - Tdap) 1970 Traditional Medicare (ACO) A nnual Wellness Visit 1970 FIT-DNA Q 3 years 1996 FIT/FOBT Q 1 year 1996 Flex Sig/CT Colonography Q 5 years 1996 PNEUMOCOCCAL VACCINE 50+ YEA RS (1 of 1 - PCV) 2001 ZOSTER VACCINE (1 of 2) 2001 COVID-19 Vaccine (3 - season) 06/10/202408/2021, 11/20/2020 INFLUENZA VACCINE (#1) 2025 RSV VACCINE (60+ or ) (1 - 1-dose 75+ series) 2026 COLORECTAL SCREENING 03/15/2033 03/15/2023 Colorectal Cancer Screening 03/15/2033 Insurance MEDICARE PART A AND B [facility] Care Teams Matrix Inspector Relationship Specialty Start Date End Date Jeff Sawant MD [address] [place] [phone] PCP - General Family Practice 11/11/23
--- OUTSIDE RECORDS SUMMARY | 2025-04-17 10:40 | XMS_ITS | Clinical Summary ---
Author Organization [facility] [employer] Address [address] [place] [address] Care Team Providers Care Causticiser Name Role Phone Jeff Sawant MD Primary Care Provider [phone] Source Comments [facility] [employer],non-owned Affiliates and Associated Physician Practices is amultiple site organization consisting of ambulatory clinics and hospital sitesin [place], [place], [place] and [place]. This disclosure is being madepursuant to the Care Everywhere program and may not contain all information available regarding this patient. Last updated 18.[employer] Allergies No known active allergies Medications * Be aware that medications may not be up to date on this document. Alwaysverify current medications with the patient. No known medications Social History Tobacco Use Types Packs/Day Years Used Date Smoking Tobacco: Never Assessed Sex and Gender Information Value Date Recorded Sex Assigned at Not on file Legal Sex Male 11:04 AM CDT Gender Identity Not on file Sexual Orientation Not on file Last Filed Vital Signs Vital Sign Reading Time Taken Comments Blood Pressure 142/80 04/29/2021 2:33 PM CDT Pulse 80 04/29/2021 2:16 PM CDT Temperature 36.6 C (97.8 F) 04/29/2021 2:16 PM CDT Respiratory Rate 20 04/29/2021 2:16 PM CDT Oxygen Saturation 97% 04/29/2021 2:16 PM CDT Inhaled Oxygen Concentration - - Weight 93 kg (205 lb) 04/29/2021 2:16 PM CDT Height 170.2 cm (5' 7) 04/29/2021 2:16 PM CDT Body Mass Index 32.11 04/29/2021 2:16 PM CDT Plan of Treatment Health Maintenance Due Date Last Done Comments COLOGUARD (AGES 45-75) - COL ON CA SCREENING 1951 COLON MONITORING 1951 COLONOSCOPY - COLON CA SCREENING 1951 CT COLONOGRAPHY - COLON CA SCREENING 1950 Colorectal Cancer Screening 1951 FIT - COLON CA SCREENING 1951 FLEX SIG - COLON CA SCREENING 1951 LIPID TESTING 1950 MEDICARE AWV 12 MONTHS 1951 HEPATITIS C SCREENING 04/15/1969 DTAP/TDAP/TD VACCINES (1 - Tdap) 1970 PNEUMOCOCCAL VACCINE 50+ (1 of 1 - PCV) 2001 ZOSTER VACCINE (1 of 2) 2001 SCREENING FOR DIABETES 04/29/2021 COVID-19 VACCINE (3 - 2023-2 5 season) 2024 12/18/2020, 11/20/2020 DEPRESSION SCREENING 10/10/2024 INFLUENZA VACCINE (#1) 2025 Respiratory Syncytial Virus (RSV) Vaccine Pt: or [...] complete this topic MENINGOCOCCAL (Group B) VACCINE SHARED DECISION-MAKING Aged Out No longer eligible based on patient's age to complete this topic MENINGOCOCCAL GROUPS A/C/Y/W VACCINE Aged Out No longer eligible b ased on patient's age to complete this topic Insurance MEDICARE MEDICARE Care Teams Causticiser Relationship Specialty Start Date End Date Jeff Sawant MD [address] [place] [phone] PCP - General Family Medicine 03/09/23
[2025-04-17 10:58] LABS: Hematocrit 39.9 % (42.0-52.0); Hemoglobin 13.1 g/dL (14.0-18.0); Mean Corpuscular HGB Conc 32.8 g/dl (32-36); Mean Corpuscular Hemoglobin 30.2 pg (26-34); Mean Corpuscular Volume 91.9 fl (80-100); Platelet Count Result 313 k/mm3 (150-375); Red Blood Count 4.34 M/mm3 (4.6-6.20); White Blood Count 6.0 K/mm3 (4.5-10.0)
[2025-04-17 16:25] LABS: Anion Gap 9 mmol/L (4-12); Blood Urea Nitrogen 12 mg/dL (9-20); Calcium 8.9 mg/dL (8.4-10.2); Carbon Dioxide 25 mmol/L (22-30); Chloride 103 mmol/L (98-107); Estimated Glomerular Filt Rate > 60; Glucose 158 mg/dL (65-110); Potassium 4.8 mmol/L (3.4-5.0); Sodium 137 mmol/L (137-145)
[2025-04-17 16:50] LABS: Iron 103 ug/dL (49-181)
[2025-04-17 17:08] LABS: Percent Iron Saturation 29 % (20-50)
[2025-04-17 17:27] LABS: Ferritin 28.70 ng/mL (11.1-264)
[2025-04-17 17:44] LABS: Vitamin B12 > 1000.0 pg/mL (239-931)
== END 2025-04-17 10:35 | disposition home or self-care (01) ==
PROVIDERS: PCP Emergency Medicine; Visit Provider Internal Medicine Hematology & Oncology
DX: D64.9 Anemia, unspecified (principal)
CPT/HCPCS: 36415; 80048; 82607; 82728; 82746; 83540; 83550; 85027

== ENCOUNTER 2025-05-06 21:32 | Emergency (ER) | payer MEDICARE, OTHER, SELFPAY ==
[2025-05-06 21:34] VITALS: BP 189/88; PULSE 85; RESP 18; TEMP 36.5; O2SAT 99
--- OUTSIDE RECORDS SUMMARY | 2025-05-06 21:34 | XMS_ITS | Clinical Summary ---
Author Organization [facility] [employer] Address [address] [place] [address] Care Team Providers Care New Media Strategist Name Role Phone Jeff Sawant MD Primary Care Provider [phone] Source Comments [facility] [employer],non-owned Affiliates and Associated Physician Practices is amultiple site organization consisting of ambulatory clinics and hospital sitesin [place], [place], [place] and [place]. This disclosure is being madepursuant to the Care Everywhere program and may not contain all information available regarding this patient. Last updated 18.[employer] Allergies No known active allergies Medications * [...] this topic Insurance MEDICARE MEDICARE Care Teams New Media Strategist Relationship Specialty Start Date End Date Jeff Sawant MD [address] [place] [phone] PCP - General Family Medicine 03/09/23
--- OUTSIDE RECORDS SUMMARY | 2025-05-06 21:34 | XMS_ITS | Patient Health Record ---
Author Organization [facility] Address [address] [place] [address] Care Team Providers Care Shallot Packer Name Role Phone Marco Grimaldo Primary Care Provider Reason For Referral No Information Immunizations Vaccine [...] Insured Coverage Start Date Coverage End Date [facility] [address] [place] [address] [id number] Jose Luis Peacock Self - patient is the insured 1
--- OUTSIDE RECORDS SUMMARY | 2025-05-06 21:34 | XMS_ITS | Clinical Summary ---
Author Organization [facility] Lang hernandez Ema Address [address] [place] [address] Care Team Providers Care Emergency Management Program Specialist Name Role Phone Jeff Sawant MD Primary Care Provider Allergies No known active allergies Medications metFORMIN [...] Encounters Date Type Department Care Team Description 04/24/2025 3:45 PM CDT Office Visit [facility] Oncology and Hematology - [place] [address] [place] [address] Harvinder Lewis MD Chronic anemia (Primary Dx) 04/22/2025 Orders Only [facility] Oncology and Hematology [place] [address] [place] [phone] Harvinder Lewis MD 03/26/2025 External Device Data STL ABSTRACTION Provider, [...] Date Smoking Tobacco: Never Smokeless Tobacco: Never Alcohol Use Standard Drinks/Week Comments Never 0 (1 standard drink = 0.6 oz pur e alcohol) Sex and Gender Information Value Date Recorded Sex Assigned at Not on file Legal Sex Male 11:08 AM CDT Gender Identity Not on file Sexual Orientation Not on file Last Filed Vital Signs Vital Sign Reading Time Taken Comments Blood Pressure 143/75 04/24/2025 3:25 PM CDT Pulse 79 04/24/2025 3:23 PM CDT Temperature 37.1 C (98.7 F) 04/24/2025 3:23 PM CDT Respiratory Rate 15 04/24/2025 3:23 PM CDT Oxygen Saturation 96% 04/24/2025 3:23 PM CDT Inhaled Oxygen Concentration - - Weight 94.1 kg (207 lb 6.4 oz) 04/24/2025 3:23 P M CDT Height 167.6 cm (5' 6) 03/25/2023 8:57 AM CDT Body Mass Index 33.48 03/25/2023 8:57 AM CDT Plan of Treatment Upcoming Encounters Date Type Department Care Team (Late st Contact Info) Description 10/25/2025 10:15 AM PERFORATING MACHINE OPERATOR Office Visit [facility] Oncology and Hematology - [place] [address] [facility] [address] [place] [address] Harvinder Lewis MD [address] [facility] [address] [place] [address] Health Maintenance Due Date Last Done Comments DTAP/TDAP/TD VACCINES (1 - Tdap) 1970 FIT-DNA Q 3 years 1996 FIT/FOBT [...] SCREENING 03/15/2033 03/15/2023 Colorectal Cancer Screening 03/15/2033 Procedures Procedure Name Priority Date/Time Associated Diagnosis Comments CBC WITH DIFFERENTIAL Routine 04/17/2025 11:43 AM CDT from Last 3 Months Results * CBC WITH DIFFERENTIAL (04/17/2025 11:43 AM CDT) Blood us Harvinder Lewis MD HEMATOLOGY ORDERABLES Final Res ult from Last 3 Months Insurance MEDICARE PART A AND B [facility] [facility] Care Teams Emergency Management Program Specialist Relationship Specialty Start Date End Date Jeff Sawant MD [address] [place] [phone] PCP - General Family Practice 11/11/23
[2025-05-06 22:36] VITALS: BP 165/93; PULSE 76; RESP 17; O2SAT 96
--- OUTSIDE RECORDS SUMMARY | 2025-05-06 22:49 | XMS_ITS | Clinical Summary ---
Author Organization [facility] [employer] Address [address] [place] [address] Care Team Providers Care Gasoline Tractor Operator Name Role Phone Jeff Sawant MD Primary Care Provider [phone] Source Comments [facility] [employer],non-owned Affiliates and Associated Physician Practices is amultiple site organization consisting of ambulatory clinics and hospital sitesin [place], [place], [place] and [place]. This disclosure is being madepursuant to the Care Everywhere program and may not contain all information available regarding this patient. Last updated 18.[employer] Allergies No known active allergies Medications * [...] this topic Insurance MEDICARE MEDICARE Care Teams Gasoline Tractor Operator Relationship Specialty Start Date End Date Jeff Sawant MD [address] [place] [phone] PCP - General Family Medicine 03/09/23
--- OUTSIDE RECORDS SUMMARY | 2025-05-06 22:49 | XMS_ITS | Clinical Summary ---
Author Organization [facility] Lang hernandez Ema Address [address] [place] [address] Care Team Providers Care Sharebroker Name Role Phone Jeff Sawant MD Primary Care Provider [phone] Allergies No known active allergies Medications metFORMIN [...] Description 04/24/2025 3:45 PM CDT Office Visit [facility] Oncology and Hematology - [place] [address] [place] [phone] Harvinder Lewis MD Chronic anemia (Primary Dx) 04/22/2025 Orders Only [facility] Oncology and Hematology [place] [address] [place] [phone] Harvinder Lewis MD 03/26/2025 External Device Data [...] st Contact Info) Description 10/25/2025 10:15 AM PACKING AND WRAPPING SUPERVISOR Office Visit [facility] Oncology and Hematology - [place] [address] [facility] [address] [place] [address] Harvinder Lewis MD [address] [facility] [address] [place] [address] Health Maintenance Due Date Last [...] Months Insurance MEDICARE PART A AND B [place] [facility] Care Teams Sharebroker Relationship Specialty Start Date End Date Jeff Sawant MD [address] [place] [phone] PCP - General Family Practice 11/11/23
--- NOTE | 2025-05-06 23:32 | ED.LOWEXIN ---
HPI - Extremity Injury (Lower) General Chief Complaint: Extremity Injury, Lower Stated Complaint: toe injury Time Seen by Provider: 05/06/25 22:33 Source: patient Mode of arrival: ambulatory Limitations: no limitations History of Present Illness HPI Narrative: This is a 75 year old male that presents to the ER for a blister to the left 2nd toe. Reports he tried to pop it earlier and was having difficulty getting the bleeding to stop which prompted him to be seen. Related Data Home Medications ?Medication ?Instructions ?Recorded ?Confirmed ?Last Taken ?Type ferrous sulfate 325 mg (65 mg 325 mg PO DAILY 02/15/23 07/20/23 03/09/23 09:00 History iron) tablet simvastatin 20 mg tablet 20 mg PO DAILY 02/15/23 07/20/23 03/13/23 09:00 History Allergies Allergy/AdvReac Type Severity Reaction Status Date / Time No Known Allergies Allergy Verified 05/06/25 21:32 Review of Systems Review of Systems: All systems reviewed & are unremarkable except as noted in HPI and below PMFSH Past Medical History Medical History Anemia Anxiety Diabetes Hyperlipidemia Iron (Fe) deficiency anemia Obesity Surgical History Surgical History History of tonsillectomy S/P hemorrhoidectomy anal rectal evaluation under anesthesia, excisional hemorrhoidectomy x2, and excision of distal rectal polyp x 1 04/29/23 Family History Family History Father History of heart bypass surgery Other Diabetes mellitus Social History Social History (Updated 07/20/23 @ 10:13 by Angelique Cadena CMA) Smoking packs per day: 1 Smoking cigarettes per day: 20.0 Years smoked: 6 Smoking pack-years: 6.00 Smoking status: Former smoker Tobacco type: cigarettes Alcohol intake: never Substance use: never Lack of Transportation: No Lack of Food: Never True Current Housing: I Have Housing Concerned About Future Housing: No Difficulty Paying Gas/Electric Bills: No Difficulty Paying for Meds: No Currently Unemployed: No Education: Bachelor's Degree Difficulty w/ Childcare or Family Care: No Living arrangements: with family Spiritual care concerns: No Exam Narrative: GENERAL: Well-appearing, well-nourished, and in no acute distress. HEAD: Normocephalic, atraumatic. EYES: EOMI. EXTREMITIES: Normal range of motion. No edema. Left 2nd toe with blister present on the distal phalanx, oozing of blood, no surrounding erythema or edema. Normal DP and PT pulses SKIN: Warm, dry, no rash. NEURO: No focal deficits. Alert and oriented x3. PSYCH: Normal mood and affect Course Vital Signs Vital signs: Vital Signs Temperature 97.7 F 05/06/25 21:34 Pulse Rate 85 05/06/25 21:34 Respiratory Rate 18 05/06/25 21:34 Blood Pressure 189/88 H 05/06/25 21:34 Pulse Oximetry 99 05/06/25 21:34 Oxygen Delivery Room Air 05/06/25 21:34 Temperature 97.7 F 05/06/25 21:34 Pulse Rate 76 05/06/25 22:36 Respiratory Rate 17 05/06/25 22:36 Blood Pressure 165/93 H 05/06/25 22:36 Pulse Oximetry 96 05/06/25 22:36 Oxygen Delivery Room Air 05/06/25 21:34 Procedures Other Procedure Procedure 1: Other Procedure: Left second toe bleeding controlled with pressure, antibiotic ointment, telfa, kerlix, coban applied MDM - Extremity Injury (Lower) MDM Narrative Medical decision making narrative: Patient presents to the ER for bleeding from a wound he was having difficulty controlling. Blister noted on the left 2nd toe. Bleeding was controlled with pressure, antibiotic ointment and a bandage placed. Reports he has follow up with his PCP in 2 days. Critical Care Time Critical Care Time Critical Care Time: No Discharge Plan Discharge Clinical Impression: Blister of toe of left foot Patient Disposition: Home Condition: Stable Instructions: Blister (ED) Additional Instructions: Return to the emergency department if you experience fever, redness or swelling of your wound, abnormal drainage from your wound, or any other symptoms that are concerning to you. If you have difficulty with bleeding apply pressure to the area for 10 minutes Follow-up with your primary care doctor for wound check Patient Language: Ukrainian Prescriptions: New cephalexin 500 mg capsule 500 mg PO Q8H 3 Days Qty: 9 0RF No Action simvastatin 20 mg tablet 20 mg PO DAILY ferrous sulfate 325 mg (65 mg iron) tablet 325 mg PO DAILY tamsulosin 0.4 mg capsule See Rx Instructions .ROUTE .COMPLEX Qty: 30 1RF Dose Instruction: TAKE 1 CAPSULE BY MOUTH EVERY DAY Rx Instructions: TAKE 1 CAPSULE BY MOUTH EVERY DAY (DME) OneTouch Verio test strips Strip See Rx Instructions .Route Qty: 100 0RF Rx Instructions: check BS one time daily (DME) lancets [OneTouch Delica Plus Lancet] 33 gauge misc See Rx Instructions .Route Qty: 100 0RF Rx Instructions: Check BS one time daily metformin 500 mg tablet extended release 24 hr See Rx Instructions .ROUTE .COMPLEX Qty: 180 2RF Dose Instruction: TAKE 1 TABLET BY MOUTH TWICE A DAY Rx Instructions: TAKE 1 TABLET BY MOUTH TWICE A DAY Follow-up/Referrals: Jeff Sawant MD [Primary Care Provider] -
== END 2025-05-06 23:50 | disposition home or self-care (01) ==
PROVIDERS: Emergency Provider Physician Assistant; PCP Emergency Medicine
DX: S90.425A Blister (nonthermal), left lesser toe(s), initial encounter (principal); D64.9 Anemia, unspecified; F41.9 Anxiety disorder, unspecified; E11.9 Type 2 diabetes mellitus without complications; E78.5 Hyperlipidemia, unspecified
CPT/HCPCS: 99283